=== PATIENT | female | born 1970 | race Caucasian/White ===

== ENCOUNTER 2016-06-24 15:30 | Emergency (ER) | payer MEDICAID ==
[2016-06-24 15:32] VITALS: BP 140/81; PULSE 109; RESP 14; TEMP 98.5; O2SAT 98
== END 2016-06-24 16:07 | disposition left against medical advice (07) ==
LOC: NED 15:30
DX: R07.9 Chest pain, unspecified (principal)
CPT/HCPCS: 99281